=== PATIENT | male | born 1960 | race African-American/Black ===

== ENCOUNTER 2022-01-01 10:38 | Emergency (ER) | payer SELFPAY ==
[~2022-01-01] VITALS: Ht 172.7 cm; Wt 86.0 kg
[2022-01-01 10:45] VITALS: BP 115/83
[2022-01-01] MEDS ORDERED: LIDOCAINE HCL/EPINEPHRINE 1%-EPI 1:100,000 20 ML VIAL INFIL ONE (11:15)
[2022-01-01] MEDS ORDERED: BACITRACIN ZINC OINT UDPKT TOP ONE (11:15)
[2022-01-01] MEDS ORDERED: TETANUS, DIPHTHERIA, PERTUSSIS VAC/PF 0.5ML (>10YR OLD) IM ONE (11:15)
[2022-01-01] MEDS: ACETAMINOPHEN 325MG TABLET PO ONE ×2 (11:15→12:00)
== END 2022-01-01 13:17 | disposition home or self-care (01) ==
LOC: ER 10:41
DX: S81.812A Laceration without foreign body, left lower leg, initial encounter (principal); W01.0XXA Fall on same level from slipping, tripping and stumbling without subsequent striking against object, initial encounter; Y93.89 Activity, other specified; Y92.89 Other specified places as the place of occurrence of the external cause; Y99.8 Other external cause status; J45.909 Unspecified asthma, uncomplicated; I10 Essential (primary) hypertension; F10.10 Alcohol abuse, uncomplicated
CPT/HCPCS: 12001; 73590; 90471; 90715; 99283; J3490